=== PATIENT | female | born 1995 | race Caucasian/White ===

== ENCOUNTER 2023-10-24 23:40 | Emergency (ER) | payer SELFPAY ==
[2023-10-25] MEDS ORDERED: Tetracaine 0.5% PF 4 ML BOT ONE (00:26)
[2023-10-25] MEDS ORDERED: Fluorescein Opthalmic Strip ONE (00:27)
[2023-10-25] MEDS ORDERED: Tobramycin 0.3% Ophth Susp 5 ml Bottle R EYE SCH (01:00)
== END 2023-10-25 01:07 | disposition home or self-care (01) ==
LOC: CSHERS 23:40
DX: S05.01XA Injury of conjunctiva and corneal abrasion without foreign body, right eye, initial encounter (principal); X58.XXXA Exposure to other specified factors, initial encounter
CPT/HCPCS: 99283